=== PATIENT | male | born 1985 | race Hispanic/Latino ===

== ENCOUNTER 2016-05-15 09:30 | Emergency (ER) | payer SELFPAY ==
[~2016-05-15] VITALS: Ht 170.2 cm; Wt 68.0 kg
--- NOTE | 2016-05-15 10:08 | ED Upper Extremity ---
General Chief Complaint: Upper Extremity Stated Complaint: FALL LEFT SHOULDER/RIB PAIN Nursing Triage Note: c/o pain to left shoulder/scapula. Pt noticed pain after lifting a "baby" yesterday. Denies fall/acute trauma Nursing Sepsis Screen: No Definite Risk Source: patient History of Present Illness Time seen by provider: 10:05 Initial Comments The patient is a 30-year-old male. He presents with pain in the left shoulder and scapula. He reports that this came on yesterday after lifting one of his baby's. He speaks some Frisian but we had trouble with the finer details. As I get it is not had any previous history of injuries to the shoulder, shoulder pain, or recent trauma. Onset: yesterday Pain/Injury Location: left shoulder Method of Injury: unknown Constitutional: see HPI EENTM: no symptoms reported Respiratory: no symptoms reported Cardiovascular: no symptoms reported Gastrointestinal: no symptoms reported Genitourinary: no symptoms reported Musculoskeletal: no symptoms reported Skin: no symptoms reported Psychiatric/Neurological: No Symptoms Reported Past [id number]-[id number] Hx Patient Social History Alcohol Use: Denies Use Recreational Drug Use: No Smoking Status: Never a Smoker Recent Foreign Travel: No Contact w/Someone Who Travel: No Recent Infectious Disease Expo: No Recent Hopitalizations: No Surgeries HX Surgeries: No Respiratory Hx Respiratory Disorders: No Cardiovascular Hx Cardiac Disorders: No Neurological Hx Neurological Disorders: No Reproductive System Hx Reproductive Disorders: No Genitourinary Hx Genitourinary Disorders: No Gastrointestinal Hx Gastrointestinal Disorders: No Musculoskeletal Hx Musculoskeletal Disorders: No Endocrine Hx Endocrine Disorders: No HEENT HX ENT Disorders: No Cancer Hx Cancer: No Psychosocial Hx Psychiatric Problems: No Integumentary HX Skin/Integumentary Disorder: No Blood Transfusions Hx Blood Disorders: No Physical Exam Vital Signs Vital Sign - Last 12Hours 05/15/16 09:47 Temp 99.0 Pulse 77 Resp 16 B/P 110/80 Pulse Ox 98 Capillary Refill : Less Than 3 Seconds General Appearance: mild distress HEENT: normal ENT inspection Neck: full range of motion Cardiovascular: normal peripheral pulses regular rate, rhythm no edema no gallop no JVD no murmur Respiratory: chest non-tender lungs clear normal breath sounds no respiratory distress no accessory muscle use Gastrointestinal: normal bowel sounds Comments The patient holds the left elbow tightly to the thorax. There is no evident bruising. There is no evident deformity. There is pain to palpation over the posterior aspect of the deltoid. There is pain to palpation along the lateral border of the scapula. Progress/Results/Core Measures Results/Orders My Orders Orders-XANDER RIVAS MD Ribs, Left 2-3 Views (05/15/16 10:01) Shoulder, Left, 3 Views (05/15/16 10:01) Vital Signs/I&O Vital Sign - Last 12Hours 05/15/16 09:47 Temp 99.0 Pulse 77 Resp 16 B/P 110/80 Pulse Ox 98 Blood Pressure Mean: 90 Departure Communication Progress Notes X-rays of shoulder and ribs are negative Impression Impression: Primary Impression: left shoulder strain Disposition: HOME, SELF-CARE Condition: Stable/Unchanged Departure-Patient Inst. Decision time for Depature: 10:41 Referrals: NO,LOCAL PHYSICIAN (PCP) Primary Care Physician Patient Instructions: How to Use a Shoulder Sling Add. Discharge Instructions: All discharge instructions reviewed with patient and/or family. Voiced understanding. Use sling until pain is relieved Use naproxen twice daily as directed Scripts Naproxen Sodium (Anaprox Ds)550 Mg Hedsnq115 Mg PO BID #30 TAB Prov:XANDER RIVAS MD 05/15/16 XANDER RIVAS MD May 15, 2016 10:08
--- NOTE | 2016-05-15 10:35 | Diagnostic Imaging Report ---
INDICATION: Left shoulder injury with pain. AP, oblique and transscapular Y. views of the left shoulder are obtained. FINDINGS: No acute fracture or dislocation is identified. No abnormal lytic or sclerotic focus is seen, and there is no radiopaque foreign body. IMPRESSION: No acute abnormality. Dictated by: Dictated on workstation # [id number]
--- NOTE | 2016-05-15 10:37 | Diagnostic Imaging Report ---
Indication: Left chest wall pain after lifting baby yesterday. No other injury. Discussion: Three views of the left ribs were obtained, no comparison. The visualized heart and lungs are normal. No pneumothorax or pleural fluid. No displaced rib fracture or other acute osseous abnormality identified. Impression: 1. Negative left ribs. Dictated by: Dictated on workstation # [id number]
[2016-05-15] MEDS ORDERED: NAPR550T PO (10:43)
[2016-05-15 11:12] VITALS: BP 128/70
== END 2016-05-15 11:12 | disposition home or self-care (01) ==
LOC: ER 09:35
DX: S46.912A Strain of unspecified muscle, fascia and tendon at shoulder and upper arm level, left arm, initial encounter (principal); X50.9XXA Other and unspecified overexertion or strenuous movements or postures, initial encounter; Y92.009 Unspecified place in unspecified non-institutional (private) residence as the place of occurrence of the external cause; Y93.F9 Activity, other caregiving; Y99.8 Other external cause status
CPT/HCPCS: 71100; 73030; 99283